=== PATIENT | male | born 1965 ===

== ENCOUNTER 2023-12-24 12:52 | Emergency (ER) | payer OTHER ==
[~2023-12-24] VITALS: Ht 175.3 cm; Wt 96.1 kg
[2023-12-24] MEDS ORDERED: BISA-151 PO (15:26)
[2023-12-24] MEDS ORDERED: LISI-894 PO (15:26)
[2023-12-24] MEDS ORDERED: OMEP20 PO (15:26)
[2023-12-24 15:47] LABS: BASOPHILS % (AUTO) 0.6 % (0.0-2.0); EOSINOPHILS % (AUTO) 1.7 % (1.0-6.0); HEMATOCRIT 47.1 % (41-53); HEMOGLOBIN 15.6 g/dL (13.5-17.5); LYMPHOCYTES % (AUTO) 29.9 % (22.0-44.0); MEAN CORPUSCULAR HGB CONC 33.2 G/dL (31.0-37.0); MEAN CORPUSCULAR VOLUME 81 fL (80-100); MONOCYTES # (AUTO) 0.5 K/uL (0.1-1.0); NEUTROPHILS # (AUTO) 4.1 K/uL (1.8-7.7); NEUTROPHILS % (AUTO) 60.8 % (40.0-70.0); PLATELET COUNT (AUTO) 217 K/uL (150-450); RED BLOOD CELL COUNT(AUTO) 5.79 MIL/uL (4.50-5.90); RED CELL DISTRIBUTION WIDTH 13.4 % (11.5-14.5); WHITE BLOOD COUNT (AUTO) 6.8 K/uL (4.5-11.0)
[2023-12-24 15:48] VITALS: TEMP 98
[2023-12-24 15:53] LABS: ANION GAP 10 mmol/L (8-16); CALCIUM, TOTAL 8.5 mg/dL (8.8-10.5); CARBON DIOXIDE 26 mmol/L (22-29); CHLORIDE 103 mmol/L (98-107); CREATININE 1.09 mg/dL (0.60-1.30); GLOMERULAR FILTR. RATE CALC > 60 mL/min (>60); GLUCOSE,RANDOM 93 mg/dL (70-110); POTASSIUM 4.2 mmol/L (3.5-5.1); SODIUM SERUM 139 mmol/L (136-145); UREA NITROGEN, BLOOD 18 mg/dL (7-18)
[2023-12-24 15:54] LABS: LIPASE 31 U/L (16-77)
[2023-12-24 16:15] LABS: APPEARANCE,URINE CLEAR (CLEAR); BILIRUBIN,URINE NEGATIVE (NEGATIVE); COLOR,URINE LIGHT YELLOW (YELLOW); GLUCOSE, URINE (UA) NEGATIVE (NEGATIVE); KETONES,URINE NEGATIVE (NEGATIVE); LEUKOCYTE ESTERASE ,URINE NEGATIVE (NEGATIVE); NITRATE,URINE NEGATIVE (NEGATIVE); OCCULT BLOOD,URINE NEGATIVE (NEGATIVE); PH,URINE 6.5 (5.0-8.0); PROTEIN,URINE NEGATIVE (NEGATIVE); SPECIFIC GRAVITIY, URINE 1.016 (1.003-1.030); UROBILINOGEN,URINE <=1.0 mg/dL (<=1.0)
[2023-12-24] MEDS ORDERED: 0.9% SODIUM CHLORIDE 10 ML SYRINGE IVP ONE (18:26)
[2023-12-24] MEDS ORDERED: SODIUM CHLORIDE 0.9% 100 ML ONE (18:26)
[2023-12-24] MEDS ORDERED: IOHEXOL 300 MG/ML 100 ML VIAL ONE (18:26)
[2023-12-24] MEDS: POLYETHYLENE GLYCOL 3350 17 GM PACKET PO ONE (18:42)
[2023-12-24] MEDS: SENNOSIDES 8.6 MG TABLET PO ONE (18:42)
[2023-12-24 18:52] VITALS: BP 143/91; PULSE 68; RESP 16; O2SAT 99
== END 2023-12-24 21:52 ==
LOC: EMS 12:52
DX: K59.00 Constipation, unspecified (principal); K21.9 Gastro-esophageal reflux disease without esophagitis; E78.00 Pure hypercholesterolemia, unspecified; I10 Essential (primary) hypertension; Z98.890 Other specified postprocedural states
CPT/HCPCS: 99285; 74177; 80048; 81003; 83690; 85025; 36415; 93005; J7050; Q9967